=== PATIENT | female | born 2000 | race Two or more races ===

== ENCOUNTER 2022-08-09 20:59 | Emergency (ER) | payer MEDICAID, OTHER ==
[~2022-08-09] VITALS: Ht 165.1 cm; Wt 58.0 kg
[2022-08-09] MEDS ORDERED: CYCL-837 PO (23:12)
[2022-08-09] MEDS ORDERED: IBUP600T27 PO (23:12)
[2022-08-09] MEDS ORDERED: KETOROLAC TROMETH 30 MG/ML 1ML VIAL IM ONE (23:15)
[2022-08-09 23:22] VITALS: BP 117/77
== END 2022-08-09 23:25 | disposition home or self-care (01) ==
LOC: ER 21:05
DX: M43.6 Torticollis (principal)
CPT/HCPCS: 73030

== ENCOUNTER 2024-01-01 00:19 | Emergency (ER) | payer MEDICAID ==
[~2024-01-01] VITALS: Ht 165.1 cm; Wt 55.4 kg
[~2024-01-01 00:19] MED LIST: CYCL-837 PO; IBUP-1454 PO
[2024-01-01 02:13] LABS: Urine Bacteria None Seen /hpf (None Seen); Urine WBC None Seen /hpf (0 - 5)
[2024-01-01 02:20] LABS: Urine Blood Negative /uL (Negative); Urine Clarity Clear (Clear); Urine Color Light-Yellow (Yellow); Urine Protein, UAD Negative (Negative); Urine Specific Gravity 1.021 (1.001-1.035); Urine Urobilinogen Normal (Negative)
[2024-01-01 02:44] VITALS: BP 137/73; TEMP 97.8
[2024-01-01 02:45] VITALS: PULSE 83; RESP 18; O2SAT 99
== END 2024-01-01 02:49 | disposition home or self-care (01) ==
LOC: ER 00:19
DX: T83.9XXA Unspecified complication of genitourinary prosthetic device, implant and graft, initial encounter (principal); R10.2 Pelvic and perineal pain
CPT/HCPCS: 36415; 76856; 81001; 84702